=== PATIENT | female | born 1930 | race Caucasian/White ===

== ENCOUNTER 2017-07-17 12:57 | Inpatient (IN) | payer OTHER ==
[~2017-07-17] VITALS: Ht 157.5 cm; Wt 94.9 kg
[2017-07-17 13:33] LABS: HEMATOCRIT 35.9 % (36.0-46.0); HEMOGLOBIN 10.7 G/DL (11.9-15.5); MCH 25.2 PG (29.0-34.0); MCHC 29.8 G/DL (30.0-36.0); MCV 84.5 FL (83-99); PLATELET COUNT 347 K/uL (156-360); RED BLOOD COUNT 4.25 M/uL (3.80-5.20)
[2017-07-17 13:41] LABS: CHLORIDE 102 mEq/L (99-109); POTASSIUM 4.2 mEq/L (3.7-5.4); SODIUM 139 mEq/L (136-147)
[2017-07-17 13:43] LABS: GLUCOSE 103 mg/dL (70-99)
[2017-07-17 13:47] LABS: CREATININE 0.8 mg/dL (0.6-1.3)
[2017-07-17 13:48] LABS: GFR ESTIMATE (CALCULATED) > 59 mL/min/; UREA NITROGEN (BUN) 17 mg/dL (9-23)
[2017-07-17 13:53] LABS: TROP-I INTERPRETATION NEGATIVE; TROPONIN-I 0.03 ng/mL (0.0-0.30)
[2017-07-17 16:38] LABS: BASE EXCESS 3.2 mEq/L (-3 to +3); BICARBONATE 26.9 mEq/L (22-26); CARBOXY HGB 2.1 % (0-5); COMMENTS - BLOOD GASES A+C+; DEVICE RA; METHEMOGLOBIN 0.6 % (0-1.5); PCO2 37 mm Hg (35-45); PO2 67 mm Hg (80-100); SITE RR; TOTAL RESP RATE 24 resp/min; pH 7.47 (7.35-7.45)
[2017-07-17 19:00] VITALS: BP 158/66
[2017-07-17] MEDS ORDERED: SYNTHROID175 MCG PO (20:40)
[2017-07-17] MEDS ORDERED: PRILOSEC20 MG PO (20:42)
[2017-07-17] MEDS ORDERED: LASIX40 MG PO (20:43)
[2017-07-17] MEDS ORDERED: COZAAR25 MG PO (20:43)
[2017-07-17] MEDS ORDERED: CARDIZEM CD180 MG PO (20:44)
[2017-07-17] MEDS ORDERED: KLOR-CON M2020 MEQ PO (20:45)
[2017-07-17] MEDS ORDERED: GABAPENTIN100 MG PO (20:45)
[2017-07-17] MEDS ORDERED: COUMADIN3 MG PO (20:46)
[2017-07-17] MEDS ORDERED: ZOLOFT25 MG PO (20:47)
[2017-07-17] MEDS ORDERED: ULTRAM50 MG PO (20:47)
[2017-07-17] MEDS ORDERED: PREDNISONE20 MG PO (20:48)
[2017-07-17] MEDS ORDERED: CLARITIN10 M3 PO (20:49)
[2017-07-17] MEDS ORDERED: STOOL SOFTENER100 M1 PO (20:51)
[2017-07-17] MEDS ORDERED: PROBIOTIC1 EAC1 PO (20:52)
[2017-07-17] MEDS ORDERED: PRESERVISION S1 EACH PO (20:52)
[2017-07-17] MEDS ORDERED: CALCIUM 600 +1 EAC4 PO (20:53)
[2017-07-17] MEDS ORDERED: REFRESH TEARS15 ML BOTH EYES (20:54)
[2017-07-17] MEDS ORDERED: [UNRECOGNIZED DRUG - OTHER] PO (20:56)
[2017-07-17] MEDS ORDERED: FLEXERIL5 MG PO (20:57)
[2017-07-17] MEDS ORDERED: GAS-X125 MG PO (20:59)
[2017-07-17] MEDS ORDERED: TYLENOL EXTRA500 MG PO (20:59)
[2017-07-17] MEDS ORDERED: MILK OF MAGN PO (21:00)
[2017-07-17] MEDS ORDERED: MYCOSTATIN 100,60 ML PO (21:01)
[2017-07-17] MEDS ORDERED: ZEASORB POWDER71 GM TP (21:02)
[2017-07-17] MEDS ORDERED: MUCINEX1200 MG PO (21:03)
[2017-07-17] MEDS ORDERED: MIRALAX255 GM PO (21:04)
[2017-07-18 00:25] VITALS: BP 138/63
[2017-07-18 06:26] LABS: HEMATOCRIT 32.1 % (36.0-46.0); HEMOGLOBIN 9.6 G/DL (11.9-15.5); MCH 25.1 PG (29.0-34.0); MCHC 29.9 G/DL (30.0-36.0); MCV 83.8 FL (83-99); PLATELET COUNT 308 K/uL (156-360); RBC DIS.WIDTH-CV 16.1 % (11.8-14.6); RBC DIS.WIDTH-SD 48.1 % (39-53); RED BLOOD COUNT 3.83 M/uL (3.80-5.20); WHITE BLOOD COUNT 9.8 K/uL (4.1-10.2)
[2017-07-18 06:52] LABS: CHLORIDE 107 MEQ/L (99-109); CREATININE 0.7 MG/DL (0.6-1.3); GFR ESTIMATE (CALCULATED) > 59 mL/min/; GLUCOSE 125 mg/dL (70-99); POTASSIUM 3.7 MEQ/L (3.7-5.4); SODIUM 144 MEQ/L (136-147); UREA NITROGEN (BUN) 16 mg/dL (9-23)
[2017-07-18 07:12] LABS: INTER. NORMALIZED RATIO 2.3
[2017-07-18 07:40] VITALS: BP 141/66
[2017-07-18 11:00] VITALS: BP 138/68
[2017-07-18 15:10] VITALS: BP 127/59
[2017-07-18 18:58] VITALS: BP 121/56
[2017-07-18 23:44] VITALS: BP 134/63
[2017-07-19 02:59] VITALS: BP 139/70
[2017-07-19 06:32] LABS: HEMATOCRIT 32.2 % (36.0-46.0); HEMOGLOBIN 9.5 G/DL (11.9-15.5); MCH 25.1 PG (29.0-34.0); MCHC 29.5 G/DL (30.0-36.0); MCV 85.2 FL (83-99); NRBC (%) 0.2 /100 WBC (0-0); PLATELET COUNT 323 K/uL (156-360); RBC DIS.WIDTH-CV 16.1 % (11.8-14.6); RBC DIS.WIDTH-SD 50.2 % (39-53); RED BLOOD COUNT 3.78 M/uL (3.80-5.20); WHITE BLOOD COUNT 14.1 K/uL (4.1-10.2)
[2017-07-19 06:48] LABS: INTER. NORMALIZED RATIO 3.4
[2017-07-19 08:30] VITALS: BP 109/59
[2017-07-19 11:23] VITALS: BP 137/63
[2017-07-19 11:55] LABS: BASE EXCESS 3.4 mEq/L (-3 to +3); BICARBONATE 26.7 mEq/L (22-26); CARBOXY HGB 1.9 % (0-5); METHEMOGLOBIN 1.2 % (0-1.5); PCO2 35 mm Hg (35-45); PO2 73 mm Hg (80-100); pH 7.49 (7.35-7.45)
[2017-07-19 11:56] LABS: COMMENTS - BLOOD GASES NAC+; DEVICE CANNULA; O2 FLOW 2 L/MIN; SITE LR
[2017-07-19 18:22] VITALS: BP 132/63
[2017-07-19 19:19] VITALS: BP 124/60
[2017-07-19 23:18] VITALS: BP 117/73
[2017-07-20 03:35] VITALS: BP 115/56
[2017-07-20 06:09] LABS: HEMATOCRIT 31.5 % (36.0-46.0); HEMOGLOBIN 9.3 G/DL (11.9-15.5); MCHC 29.5 G/DL (30.0-36.0); MCV 84.7 FL (83-99); PLATELET COUNT 303 K/uL (156-360); RBC DIS.WIDTH-CV 16.2 % (11.8-14.6); RBC DIS.WIDTH-SD 50.1 % (39-53); RED BLOOD COUNT 3.72 M/uL (3.80-5.20); WHITE BLOOD COUNT 12.9 K/uL (4.1-10.2)
[2017-07-20 06:46] LABS: CHLORIDE 110 MEQ/L (99-109); CREATININE 0.7 MG/DL (0.6-1.3); GFR ESTIMATE (CALCULATED) > 59 mL/min/; GLUCOSE 132 mg/dL (70-99); POTASSIUM 3.3 MEQ/L (3.7-5.4); SODIUM 149 MEQ/L (136-147)
[2017-07-20 06:49] LABS: INTER. NORMALIZED RATIO 5.4
[2017-07-20 06:50] LABS: UREA NITROGEN (BUN) 28 mg/dL (9-23)
[2017-07-20 07:22] VITALS: BP 132/60
[2017-07-20 11:29] VITALS: BP 160/70
[2017-07-20 16:52] VITALS: BP 127/99
[2017-07-20 19:57] VITALS: BP 133/73
[2017-07-21 00:29] VITALS: BP 133/67
[2017-07-21 03:34] VITALS: BP 133/73
[2017-07-21 06:35] LABS: HEMATOCRIT 32.3 % (36.0-46.0); HEMOGLOBIN 9.5 G/DL (11.9-15.5); MCH 25.1 PG (29.0-34.0); MCHC 29.4 G/DL (30.0-36.0); MCV 85.2 FL (83-99); PLATELET COUNT 293 K/uL (156-360); RBC DIS.WIDTH-CV 16.3 % (11.8-14.6); RBC DIS.WIDTH-SD 50.5 % (39-53); RED BLOOD COUNT 3.79 M/uL (3.80-5.20); WHITE BLOOD COUNT 12.1 K/uL (4.1-10.2)
[2017-07-21 06:44] LABS: INTER. NORMALIZED RATIO 5.1
[2017-07-21 07:00] LABS: CHLORIDE 107 MEQ/L (99-109); CREATININE 0.7 MG/DL (0.6-1.3); GFR ESTIMATE (CALCULATED) > 59 mL/min/; GLUCOSE 144 mg/dL (70-99); SODIUM 147 MEQ/L (136-147); UREA NITROGEN (BUN) 29 mg/dL (9-23)
[2017-07-21 07:45] VITALS: BP 132/60
[2017-07-21 11:00] VITALS: BP 122/63
[2017-07-21] MEDS ORDERED: HYOSCYAMINE0.125 M2 SL (12:11)
[2017-07-21] MEDS ORDERED: ATIVAN INTE2 MG/1 ML PO (12:11)
[2017-07-21] MEDS ORDERED: MORPHINE SULFAT15 M1 PO (12:11)
[2017-07-21] MEDS ORDERED: MORPHINE CON20 MG/M1 SL (12:11)
[2017-07-21] MEDS ORDERED: PROAIR HFA8.5 GM IH (14:08)
== END 2017-07-21 17:09 | disposition hospice, home (50) | DRG 191 ==
LOC: EME 12:57 → EDOF 16:59 → 5EAST 16:59 → ENRESERV 17:00 → 5EAST 18:12 → ENPENDDIS 07-21 → 5EAST 07-21 17:09
PROVIDERS: Hospitalist; Internal Medicine; Nurse Practitioner Family
DX: J44.1 Chronic obstructive pulmonary disease with (acute) exacerbation (principal); J96.11 Chronic respiratory failure with hypoxia; J20.9 Acute bronchitis, unspecified; J44.0 Chronic obstructive pulmonary disease with (acute) lower respiratory infection; E87.0 Hyperosmolality and hypernatremia; M48.56XA Collapsed vertebra, not elsewhere classified, lumbar region, initial encounter for fracture; J98.11 Atelectasis; Z68.38 Body mass index [BMI] 38.0-38.9, adult; I10 Essential (primary) hypertension; E87.6 Hypokalemia; D64.9 Anemia, unspecified; Z51.5 Encounter for palliative care; E66.01 Morbid (severe) obesity due to excess calories; E03.9 Hypothyroidism, unspecified; F41.9 Anxiety disorder, unspecified; K59.00 Constipation, unspecified; M40.14 Other secondary kyphosis, thoracic region; M33.20 Polymyositis, organ involvement unspecified; M85.88 Other specified disorders of bone density and structure, other site; M47.9 Spondylosis, unspecified; D68.9 Coagulation defect, unspecified; K57.30 Diverticulosis of large intestine without perforation or abscess without bleeding; Z79.01 Long term (current) use of anticoagulants; Z79.52 Long term (current) use of systemic steroids; Z86.711 Personal history of pulmonary embolism; Z83.3 Family history of diabetes mellitus; Z96.643 Presence of artificial hip joint, bilateral
CPT/HCPCS: 36600; 71046; 71250; 74176; 80048; 80048 91; 82803; 82948; 83880; 84484; 85027; 85610; 85730; 93005; 94640; 94640 76; 94760; 94799; 97530 GP; 99202; 99281; 99285; J0295; J0692; J2270; J2930; J7050; J7512